=== PATIENT | male | born 1985 | race Caucasian/White ===

== ENCOUNTER 2018-07-12 06:20 | Emergency (ER) | payer OTHER ==
[~2018-07-12] VITALS: Ht 172.7 cm; Wt 77.1 kg
[~2018-07-12 06:20] MED LIST: IMODIUM A-D2 MG PO; LEVSIN/SL0.125 MG SL; NASONEX17 GM NS; ZITHROMAX PO; ZYRTEC10 MG PO
== END 2018-07-12 12:07 | disposition home or self-care (01) ==
LOC: ER 06:20
DX: K52.9 Noninfective gastroenteritis and colitis, unspecified (principal); E86.0 Dehydration